=== PATIENT | male | born 1975 | race Caucasian/White ===

== ENCOUNTER → 2020-10-24 | Day surgery (SDC) | payer MEDICARE, OTHER | END | disposition home or self-care (01) | LOC: OR 06:48 | DX: K62.1 Rectal polyp (principal); K64.0 First degree hemorrhoids; R10.9 Unspecified abdominal pain; Z87.19 Personal history of other diseases of the digestive system; F17.210 Nicotine dependence, cigarettes, uncomplicated; K52.9 Noninfective gastroenteritis and colitis, unspecified; Z20.822 Contact with and (suspected) exposure to COVID-19 | CPT/HCPCS: J2704; J7040 ==